=== PATIENT | male | born 1970 | race Hispanic/Latino ===

== ENCOUNTER 2021-01-30 19:16 | Emergency (ER) | payer SELFPAY ==
[2021-01-30 21:33] LABS: Absolute Lymphocytes (CBC) 1.1 K/uL (0.7-4.9); Basophils % 0.2 % (0-1.3); Hematocrit 46.3 % (39.6-49.0); Lymphocytes % 18.8 % (15.3-44.8); Protime INR 1.09; RBC Red Blood Cell Count 5.56 M/uL (4.33-5.43)
[2021-01-30 21:49] LABS: ALT/SGPT 52 U/L (12-78); AST/SGOT 33 U/L (15-37); Albumin 3.5 g/dL (3.4-5.0); Alkaline Phosphatase 75 U/L (45-117); BUN Blood Urea Nitrogen 13 mg/dL (7-18); Bicarbonate 25 mmol/L (21-32); Bilirubin Direct 0.1 mg/dL (0-0.2); Bilirubin Total 0.5 mg/dL (0.2-1.0); Glucose Level 183 mg/dL (74-106); Magnesium 2.4 mg/dL (1.8-2.4); NT PRO-BNP 9 pg/mL (<125); Potassium 4.1 mmol/L (3.5-5.1); Protein, Total 7.5 g/dL (6.4-8.2); Sodium Level 135 mmol/L (136-145); Troponin (Emerg Dept Use Only) < 0.02 ng/mL (0.0-0.045)
--- NOTE | 2021-01-30 21:52 | RAD REPORT ---
EXAM DESCRIPTION: Allyson Single View01/30/2021 9:29 pm CLINICAL HISTORY: Chest pain COMPARISON: none FINDINGS: Mild to moderate right and mild left pulmonary opacities. The heart is normal size IMPRESSION: Mild to moderate right and mild left pulmonary opacities probably pneumonia
[2021-01-30] MEDS ORDERED: ACETAMINOPHEN 500 MG TAB ONE (23:39)
[2021-01-31] MEDS ORDERED: dexAMETHasone 10 MG/ML VIAL ONE (00:14)
[2021-01-31] MEDS ORDERED: IBUPROFEN 400 MG TAB ONE (00:14)
[2021-01-31] MEDS ORDERED: HYDROCODONE/CHLORPHEN 5 ML/OSYR ONE (00:14)
[2021-01-31] MEDS ORDERED: NA CHLORIDE 0.9% 1,000 ML ONE (00:15)
[2021-01-31] MEDS ORDERED: CASIRIVIMAB/IMDEVIMAB 10 ML VIAL ONE (00:43)
[2021-01-31] MEDS ORDERED: NA CHLORIDE 0.9% 250 ML ONE (00:44)
[2021-01-31] MEDS ORDERED: NA CHLORIDE 0.9% 50 ML ONE (00:44)
[2021-01-31 01:48] LABS: C-Reactive Protein 83.3 mg/L (<3.00); Ferritin 788.9 ng/mL (26-388)
--- NOTE | 2021-01-31 03:21 | EDPHYS ---
Physician Documentation [facility] Name: Petr Ferraro Age: 51 yrs Sex: Male : 1970 Arrival Date: 01/30/2021 Time: 19:18 Bed 13 Private MD: ED Physician Brien Rouse HPI: 01/30 23:35 This 51 yrs old Male presents to ER via Ambulatory with complaints of Fever, cp Chest Pain > 30 y/o. 23:35 The patient reports fever, with an emergency department temperature of 102.7 degrees cp Fahrenheit. 23:35 The patient or guardian reports cough, that is constant, with no sputum, difficulty cp breathing. 23:35 Associated signs and symptoms: Pertinent positives: chest pain, with cough, Pertinent cp negatives: diarrhea, vomiting. Patient reports testing positive for COVID-19 on 01-26-2021 with symptoms started 01-25-2021. Historical: - Allergies: 20:56 No Known Allergies; kg - Home Meds: 20:56 metformin 500 mg Oral tab 1 tab 2 times per day [Active]; gabapentin 300 mg oral tab kg [Active]; - PMHx: 20:56 NIDDM; kg - PSHx: 20:56 None; kg - Immunization history:: Adult Immunizations not up to date, Client reports having NOT received the Covid vaccine. - Social history:: Smoking status: Patient reports the use of cigarette tobacco products, smokes one-half pack cigarettes per day. ROS: 23:40 Constitutional: Positive for body aches, fever, Negative for poor PO intake. cp 23:40 Eyes: Negative for injury, pain, redness, and discharge. cp 23:40 ENT: Negative for ear pain, sore throat, difficulty swallowing, difficulty handling secretions. 23:40 Cardiovascular: Positive for chest pain, with cough, Negative for edema, palpitations. 23:40 Respiratory: Positive for cough, with no reported sputum, shortness of breath, Negative for wheezing. 23:40 Abdomen/GI: Negative for abdominal pain, nausea, vomiting, and diarrhea, constipation. 23:40 Back: Negative for radiated pain. 23:40 Skin: Negative for rash. 23:40 Neuro: Negative for altered mental status, headache, syncope, weakness. 23:40 All other systems are negative. Exam: 21:15 ECG was reviewed by the Attending Physician. cp 23:45 Constitutional: The patient appears in no acute distress, alert, awake, cp non-diaphoretic, non-toxic, well developed, well nourished, uncomfortable. 23:45 Head/Face: Normocephalic, atraumatic. cp 23:45 Eyes: Periorbital structures: appear normal, Conjunctiva: normal, no exudate, no injection, Sclera: no appreciated abnormality, Lids and lashes: appear normal, bilaterally. 23:45 ENT: External ear(s): are unremarkable, Nose: is normal, Mouth: Lips: moist, Oral mucosa: moist, Posterior pharynx: Airway: no evidence of obstruction, patent. 23:45 Neck: ROM/movement: is normal, is supple, without pain, no range of motions limitations, no meningismus, no nuchal rigidity. 23:45 Chest/axilla: Inspection: normal, Palpation: is normal, no crepitus, no tenderness. 23:45 Cardiovascular: Rate: tachycardic, Rhythm: regular, Edema: is not appreciated, JVD: is not appreciated. 23:45 Respiratory: the patient does not display signs of respiratory distress, Respirations: normal, no use of accessory muscles, no retractions, labored breathing, is not present, Breath sounds: bronchial sounds, that are mild, are heard diffusely, decreased breath sounds, are not appreciated, stridor, is not appreciated, wheezing: is not appreciated. 23:45 Abdomen/GI: Inspection: abdomen appears normal, Palpation: abdomen is soft and non-tender, in all quadrants. 23:45 Skin: no rash present. 23:45 Neuro: Orientation: to person, place \T\ time. Mentation: is normal, Motor: moves all fours, strength is normal. Vital Signs: 20:54 BP 123 / 93; Pulse 123; Resp 20; Temp 99.2(O); Pulse Ox 97% on R/A; Weight 85.73 kg kg (R); Height 5 ft. 6 in. (167.64 cm) (R); Pain 9/10; 23:11 BP 131 / 94; Pulse 121; Resp 36; Temp 102.7(O); Pulse Ox 96% on R/A; mw2 01/31 00:32 BP 133 / 89; Pulse 107; Resp 20 S; Temp 100.6(O); Pulse Ox 96% on R/A; bb 01:26 BP 125 / 75; Pulse 94; Resp 22 S; Temp 99.1(O); Pulse Ox 97% on R/A; bb 02:00 BP 115 / 77; Pulse 87; Resp 24 S; Pulse Ox 95% on R/A; bb 02:30 BP 120 / 77; Pulse 84; Resp 22 S; Pulse Ox 96% on R/A; bb 03:00 BP 110 / 75; Pulse 79; Resp 22; Pulse Ox 95% on R/A; bb 03:30 BP 111 / 73; Pulse 76; Resp 21 S; Pulse Ox 95% on R/A; bb 04:03 BP 105 / 72; Pulse 88; Resp 22 S; Temp 97.8(O); Pulse Ox 96% on R/A; bb 01/30 20:54 Body Mass Index 30.51 (85.73 kg, 167.64 cm) kg MDM: 01/30 23:17 Patient medically screened. cp 01/31 03:19 Data reviewed: vital signs, nurses notes, lab test result(s), EKG, radiologic studies, cp CT scan, plain films. Test interpretation: by ED physician or midlevel provider: ECG, plain radiologic studies. Counseling: I had a detailed discussion with the patient and/or guardian regarding: the historical points, exam findings, and any diagnostic results supporting the discharge/admit diagnosis, lab results, radiology results, to return to the emergency department if symptoms worsen or persist or if there are any questions or concerns that arise at home. Response to treatment: the patient's symptoms have markedly improved after treatment, and as a result, I will discharge patient. 01/30 21:00 Order name: Basic Metabolic Panel kg 01/30 21:00 Order name: CBC with Diff; Complete Time: 23:17 kg 01/31 02:58 Interpretation: Normal except: RBC 5.56; PLT 145; BRIDGET% 74.0. cp 01/30 21:00 Order name: LFT's; Complete Time: 23:17 kg 01/30 21:00 Order name: Magnesium; Complete Time: 23:17 kg 01/30 21:00 Order name: NT PRO-BNP; Complete Time: 23:17 kg 01/30 21:00 Order name: PT-INR; Complete Time: 23:17 kg 01/30 21:00 Order name: Troponin (emerg Dept Use Only); Complete Time: 23:17 kg 01/30 21:00 Order name: XRAY Chest (1 view); Complete Time: 23:17 kg 01/30 21:00 Order name: Basic Metabolic Panel; Complete Time: 23:17 EDMS 01/30 23:51 Interpretation: Normal except: NA 135; GLUC 183; GFR 88. cp 01/30 23:30 Order name: CRP cp 01/30 23:30 Order name: CT Chest For PE Angio cp 01/30 23:30 Order name: Ferritin cp 01/30 23:31 Order name: C-Reactive Protein; Complete Time: 02:57 EDMS 01/31 02:58 Interpretation: Abnormal: C-REACTIVE PROT 83.30. cp 01/30 23:31 Order name: Ferritin; Complete Time: 02:57 EDMS 01/30 21:00 Order name: EKG; Complete Time: 21:01 kg 01/30 21:00 Order name: EKG - Nurse/Tech; Complete Time: 21:00 kg 01/30 21:00 Order name: IV Saline Lock; Complete Time: 01:02 kg 01/30 21:00 Order name: Labs collected and sent; Complete Time: 01:02 kg 01/30 21:00 Order name: O2 Per Protocol; Complete Time: 01:02 kg 01/30 21:00 Order name: O2 Sat Monitoring; Complete Time: 01:02 kg EC/04 21:15 Rate is 126 beats/min. Rhythm is regular. WA interval is normal. QRS interval is cp normal. QT interval is normal. T waves are Inverted in lead aVL. Interpreted by me. Reviewed by me. Administered Medications: 23:11 Drug: Tylenol 1000 mg Route: PO; bb 01/31 00:31 Follow up: Response: Temperature is decreased bb 00:31 Drug: Tussionex Pennkinetic ER (chlorpheniramine-hydrocodone) Suspension 5 ml Route: PO;bb 01:25 Follow up: Response: No adverse reaction bb 00: Drug: Ibuprofen 800 mg Route: PO; bb 01:25 Follow up: Response: Temperature is decreased bb 00:31 Drug: Decadron - Dexamethasone 6 mg Route: IVP; Site: left antecubital; bb 01:25 Follow up: Response: No adverse reaction bb 00:31 Drug: NS 0.9% 1000 ml Route: IV; Rate: 1 bolus; Site: left antecubital; bb 01:26 Follow up: IV Status: Completed infusion; IV Intake: 1000ml bb 01:25 Drug: REGEN-COV Dose Pack 120 mg/mL-120 mg/mL (EUA) 260 ml Route: IV; Rate: calculated bb rate; Site: left antecubital; 02:30 Follow up: IV Status: Completed infusion; IV Intake: 270ml bb 02:40 Follow up: Response: No adverse reaction; IV Status: Completed infusion; IV Intake: kg 250ml 04:00 Drug: Aspirin 81 mg Route: PO; bb 04:00 Follow up: Response: Medication administered at discharge. bb 04:01 Not Given (Physician Discretion): NS 0.9% 1000 ml IV at 1 bolus Per protocol; 1000 mL bb bolus Disposition: 05:46 Co-signature as Attending Physician, Brien Rouse MD. [email or web address] Disposition Summary: 01/31/21 03:20 Discharge Ordered Location: Home cp Problem: new cp Symptoms: have improved cp Condition: Stable cp Diagnosis - Other viral pneumonia cp - SARS-associated coronavirus as the cause of diseases classified elsewhere cp Followup: cp - With: Private Physician - When: 2 - 3 days - Reason: Recheck today's complaints Discharge Instructions: - Discharge Summary Sheet cp - Aspirin and Your Heart cp - COVID-19 cp - COVID-19: What Your Test Results Mean - [facility] cp - COVID-19 Frequently Asked Questions cp - Things to Know about the COVID-19 Pandemic - CDC cp - 10 Things You Can Do to Manage Your COVID-19 Symptoms at Home - CDC cp - COVID-19: Quarantine vs. Isolation - CDC cp Forms: - Medication Reconciliation Form cp - Thank You Letter cp - Antibiotic Education cp - Prescription Opioid Use cp Prescriptions: - albuterol sulfate 90 mcg/actuation Inhalation HFA aerosol inhaler - inhale 2 puff by INHALATION route every 6 hours; 1 Inhaler; Refills: 0, Product cp Selection Permitted - dexamethasone 2 mg Oral tablet - take 1 tablet by ORAL route 3 times per day for 5 days; 15 tablet; Refills: 0, cp Product Selection Permitted - Zithromax Z-Sandeep 250 mg Oral Tablet - take 1 tablet by ORAL route as directed for 5 days Day 1 - take two (2) tablets cp one time. Day 2, 3, 4 , 5 take one (1) tablet once daily.; 6 tablet; Refills: 0, Product Selection Permitted - Guaifenesin AC 10-100 mg/5 mL Oral Liquid - take 10 milliliters by ORAL route every 6-8 hours As needed; 180 milliliter; cp Refills: 0, Product Selection Permitted Signatures: Dispatcher [employer] EDMS Zee Medrano, RN RN bb Devante Genao PA PA cp Brien Rouse MD MD [email or web address] Dot Bradford RN RN kg Corrections: (The following items were deleted from the chart) 01/30 20:58 20:56 Home Meds: None; kg kg 01/31 02:58 01/30 23:51 Normal except: RBC 5.56; PLT 145. cp cp 01/31 04:00 03:08 [email or web address] ordered. EDMS EDMS
--- NOTE | 2021-01-31 03:21 | ER ---
Nurse's Notes [facility] Name: Petr Ferraro Age: 51 yrs Sex: Male : 1970 Arrival Date: 01/30/2021 Time: 19:18 Bed 13 Private MD: Diagnosis: Other viral pneumonia;SARS-associated coronavirus as the cause of diseases classified elsewhere Presentation: 01/30 20:54 Chief complaint: Patient states: Chest pain, fever x 3 days. COVID + 01/26. Coronavirus kg screen: Vaccine status: Patient reports being unvaccinated. Ebola Screen: Patient negative for fever greater than or equal to 101.5 degrees Fahrenheit, and additional compatible Ebola Virus Disease symptoms Patient denies exposure to infectious person. Patient denies travel to an Ebola-affected area in the 21 days before illness onset. Initial Sepsis Screen: Does the patient meet any 2 criteria? No. Patient's initial sepsis screen is negative. Does the patient have a suspected source of infection? No. Patient's initial sepsis screen is negative. Risk Assessment: Do you want to hurt yourself or someone else? Patient reports no desire to harm self or others. Onset of symptoms was January 27, 2021. 20:54 Method Of Arrival: Ambulatory kg 20:54 Acuity: DAMI 3 kg Triage Assessment: 20:56 General: Appears in no apparent distress. Behavior is calm, cooperative, appropriate kg for age, quiet. Pain: Complains of pain in xiphoid area and mid-sternal area. Cardiovascular: Reports chest pain. Historical: - Allergies: 20:56 No Known Allergies; kg - Home Meds: 20:56 metformin 500 mg Oral tab 1 tab 2 times per day [Active]; gabapentin 300 mg oral tab kg [Active]; - PMHx: 20:56 NIDDM; kg - PSHx: 20:56 None; kg - Immunization history:: Adult Immunizations not up to date, Client reports having NOT received the Covid vaccine. - Social history:: Smoking status: Patient reports the use of cigarette tobacco products, smokes one-half pack cigarettes per day. Screenin:40 Abuse screen: Denies threats or abuse. Nutritional screening: No deficits noted. bb Tuberculosis screening: No symptoms or risk factors identified. Fall Risk None identified. Assessment: 23:40 General: Appears uncomfortable, Behavior is calm, cooperative. Pain: Complains of pain bb in chest. Neuro: Level of Consciousness is awake, alert, obeys commands, Oriented to person, place, time, situation. Cardiovascular: Heart tones S1 S2 present Capillary refill < 3 seconds Patient's skin is warm and dry. Rhythm is sinus tachycardia. Respiratory: Respiratory effort is unlabored, Respiratory pattern is tachypnea Breath sounds are clear bilaterally. GI: No deficits noted. Derm: Skin is pink, warm \T\ dry. Musculoskeletal: Circulation, motion, and sensation intact. 23:44 Pain: Pain does not radiate. Pain began 2-3 days ago. bb 01/31 00:31 Reassessment: Patient is alert, oriented x 3, equal unlabored respirations, skin bb warm/dry/pink. pt signed consent for for Regen-Cov. 01:26 Reassessment: Patient is alert, oriented x 3, equal unlabored respirations, skin bb warm/dry/pink. pt resting quietly, Regen-Cov administered to left AC. 04:01 Reassessment: Patient is alert, oriented x 3, equal unlabored respirations, skin bb warm/dry/pink. pt verbalized understanding of and agrees to plan of care discharge instructions given pt ambulated with steady gait to exit Patient states feeling better. Vital Signs: 01/30 20:54 BP 123 / 93; Pulse 123; Resp 20; Temp 99.2(O); Pulse Ox 97% on R/A; Weight 85.73 kg kg (R); Height 5 ft. 6 in. (167.64 cm) (R); Pain 9/10; 23:11 BP 131 / 94; Pulse 121; Resp 36; Temp 102.7(O); Pulse Ox 96% on R/A; mw2 01/31 00:32 BP 133 / 89; Pulse 107; Resp 20 S; Temp 100.6(O); Pulse Ox 96% on R/A; bb 01:26 BP 125 / 75; Pulse 94; Resp 22 S; Temp 99.1(O); Pulse Ox 97% on R/A; bb 02:00 BP 115 / 77; Pulse 87; Resp 24 S; Pulse Ox 95% on R/A; bb 02:30 BP 120 / 77; Pulse 84; Resp 22 S; Pulse Ox 96% on R/A; bb 03:00 BP 110 / 75; Pulse 79; Resp 22; Pulse Ox 95% on R/A; bb 03:30 BP 111 / 73; Pulse 76; Resp 21 S; Pulse Ox 95% on R/A; bb 04:03 BP 105 / 72; Pulse 88; Resp 22 S; Temp 97.8(O); Pulse Ox 96% on R/A; bb 01/30 20:54 Body Mass Index 30.51 (85.73 kg, 167.64 cm) kg ED Course: 01/30 19:18 Patient arrived in ED. bp1 20:56 Triage completed. kg 21:12 Inserted saline lock: 20 gauge in left antecubital area, using aseptic technique. kg 21:28 XRAY Chest (1 view) In Process Unspecified. EDMS 23:08 Devante eGnao PA is PHCP. cp 23:08 Brien Rouse MD is Attending Physician. cp 23:40 Zee Medrano RN is Primary Nurse. bb 23:40 Patient maintains SpO2 saturation greater than 95% on room air. bb 23:40 Patient has correct armband on for positive identification. supervisor hot dip tinning on. Pulse bb ox on. NIBP on. 23:43 Arm band placed on. bb 01/31 00:15 CT Chest For PE Angio In Process Unspecified. EDMS 04:03 No provider procedures requiring assistance completed. IV discontinued, intact, bb bleeding controlled, No redness/swelling at site. Pressure dressing applied. Administered Medications: 01/30 23:11 Drug: Tylenol 1000 mg Route: PO; bb 01/31 00:31 Follow up: Response: Temperature is decreased bb 00:31 Drug: Tussionex Pennkinetic ER (chlorpheniramine-hydrocodone) Suspension 5 ml Route: PO;bb 01:25 Follow up: Response: No adverse reaction bb 00:31 Drug: Ibuprofen 800 mg Route: PO; bb 01:25 Follow up: Response: Temperature is decreased bb 00:31 Drug: Decadron - Dexamethasone 6 mg Route: IVP; Site: left antecubital; bb 01:25 Follow up: Response: No adverse reaction bb 00:31 Drug: NS 0.9% 1000 ml Route: IV; Rate: 1 bolus; Site: left antecubital; bb 01:26 Follow up: IV Status: Completed infusion; IV Intake: 1000ml bb 01:25 Drug: REGEN-COV Dose Pack 120 mg/mL-120 mg/mL (EUA) 260 ml Route: IV; Rate: calculated bb rate; Site: left antecubital; 02:30 Follow up: IV Status: Completed infusion; IV Intake: 270ml bb 02:40 Follow up: Response: No adverse reaction; IV Status: Completed infusion; IV Intake: kg 250ml 04:00 Drug: Aspirin 81 mg Route: PO; bb 04:00 Follow up: Response: Medication administered at discharge. bb 04:01 Not Given (Physician Discretion): NS 0.9% 1000 ml IV at 1 bolus Per protocol; 1000 mL bb bolus Intake: 01:26 IV: 1000ml; Total: 1000ml. bb 02:30 IV: 270ml; Total: 1270ml. bb 02:40 IV: 250ml; Total: 1520ml. kg Outcome: 03:20 Discharge ordered by MD. cp 04:03 Discharged to home ambulatory. bb 04:03 Condition: stable 04:03 Discharge instructions given to patient, Instructed on discharge instructions, follow up and referral plans. medication usage, Demonstrated understanding of instructions, follow-up care, medications, Prescriptions given X 4. 04:07 Patient left the ED. bb Signatures: Dispatcher [employer] EDMS Zee Medrano RN RN bb Devante Genao PA PA cp [place], MyKena mw2 Kelly Hawk Kristen, RN RN kg Corrections: (The following items were deleted from the chart) 01/30 20:58 20:56 Home Meds: None; kg kg
[2021-01-31] MEDS ORDERED: ASPIRIN 81 MG CHEWABLE TABLET ONE (04:19)
[2021-01-31 04:27] VITALS: BP 105/72; TEMP 97.8; O2SAT 96
--- NOTE | 2021-02-01 11:52 | RAD REPORT ---
EXAM DESCRIPTION: CT - Chest For Pe Angio - 01/31/2021 5:35 am CLINICAL HISTORY: 51 years, Male, CHEST PAIN COMPARISON: None TECHNIQUE: Multiple transaxial tomograms of the chest were obtained from the lung apices through the lung bases utilizing 2 mm slice thickness at 2 mm interval reconstruction after the administration o f large bolus of IV contrast for complete opacification of the pulmonary arteries. Subsequent maximum intensity projection images were generated in the coronal and sagittal plane for r eview. This exam was performed according to our departmental dose-optimization protocol, which includes auto mated exposure control, adjustment of the mA and/or kV according to patient size and/or use of iterat marysol reconstruction technique. FINDINGS: The lungs parenchyma demonstrate the presence of small bilateral upper and lower lobe elda pheral groundglass opacities with minimal interlobular septal thickening-crazy paving, suspicious for COVID-19 pneumonia. There are no significant consolidations/or masses are identified. The trachea mainstem bronchus demonstrate to be normal. There is no significant pericardial or pleura l effusions. The thoracic aorta demonstrate to be unremarkable. The heart is in the upper normal size with left ve ntricular hypertrophy. No evidence for right ventricular strain. There are no coronary artery calcifi cations. There is no significant mediastinal and/or hilar lymphadenopathy. The axillary regions demonstrate to be clear. Pulmonary arteries demonstrate to be normal, no intraluminal defect are seen that would suggest pulmo nary embolus. The bone windows demonstrate no significant skeletal lesions. The visualized portions of the abdomen demonstrate decreased attenuation of the liver suggesting fatt y infiltration. IMPRESSION: No evidence for pulmonary embolism. Commonly reported imaging features of COVID-19 pneumonia are present. Other processes such as influen za pneumonia and organizing pneumonia, as can be seen with drug toxicity and connective tissue diseas e, can cause a similar imaging pattern. Borderline cardiomegaly with left ventricular hypertrophy. Fatty infiltration of the liver. Electronically signed by: Lance Low MD 01/31/2021 12:31 AM CDT Due to temporary technical issues with the PACS/Fluency reporting system, reports are being signed by the in house radiologists without review as a courtesy to insure prompt reporting. The interpreting radiologist is fully responsible for the content of the report.
--- NOTE | 2021-02-01 16:58 | EKG ---
Test Date: 2021-01-30 Test Time: 20:56:20 Unix Engineer: GIANLUCA MEASUREMENT RESULTS: Intervals: Rate: 126 DC: 144 QRSD: 80 QT: 298 QTc: 431 [place]: P: 32 DC: 144 QRS: 15 T: 71 INTERPRETIVE STATEMENTS: Sinus tachycardia Otherwise normal ECG No previous ECG available for comparison Electronically Signed On 02-01-21 16:56:09 CDT by Edward Fu
== END 2021-01-31 04:07 | disposition home or self-care (01) ==
LOC: ER 19:16
DX: U07.1 COVID-19 (principal); J12.89 Other viral pneumonia; E11.9 Type 2 diabetes mellitus without complications; F17.210 Nicotine dependence, cigarettes, uncomplicated
CPT/HCPCS: 36415; 71045; 71275; 80048; 80076; 82728; 83735; 83880; 84484; 85025; 85610; 86140; 93005; 96361; 96365; 96375; 99285; J7050; Q9967

== ENCOUNTER 2021-11-14 10:42 | Emergency (ER) | payer OTHER ==
--- OUTSIDE RECORDS SUMMARY | 2021-11-14 10:45 | XMS REPORT | Continuity of Care Document ---
:1970 Author Organization [facility] t Address [address] [place] [address] [address] [place] [address] Care Team Providers Name Role Phone Unavailable Unavailable Unavailable Problems This patient has no known problems. Allergies, Adverse Reactions, Alerts This patient has no known allergies or adverse reactions. Medications This patient has no known medications. Procedures This patient has no known procedures. Results Test Description Test Time Test Comments Results Result Comments Source HEMOGLOBIN A1c 2021-10-16 04:10:21 Test Item Value Reference Range Interpretation Comme nts HEMOGLOBIN A1c (test code = 6.5 % 4.2-5.6 H [employer] 05187) GUIDELINES FOR HGB A1C: PREDIABETES/INC REASED RISK . . . . . . . 5.7-6.4% DIAGNOSIS OF DIABETES . . . . . . . . . >=6.5% WITH CONFIRMATION OR APPROPRIATE SYMPTOMS NOTE: ASSAY MA Y BE AFFECTED BY HEMOGLOBINOPATH IES (SICKLE CELL ANEMIA, S-C DIS EASE, OTHERS) OR ARTIFICIALLY LO WERED BY DECREASED RED CELL SURVIV AL (HEMOLYTIC ANEMIAS, BLOOD LOSS, ETC.). CONSIDER ALTERNATE TESTI NG OR LABORATORY CONSULTATION. LIPID [id number] 03:45:47 Test Item Value Reference Range Interpretation Comments CHOLESTEROL (test 230 MG/DL <200 H code = 2210) TRIGLYCERIDES (test 212 MG/DL <150 H code = 2232) HDL CHOLESTEROL (test 40 MG/DL >39 code = 2220) CALC LDL CHOL (test 152 MG/DL <100 H NOTE: C ALCULATED LDL code = 2237) IS BASED ON NATALYA-JO METHOD WHICHINCLUDES ADJUSTABLE TRIGLYCERIDE:VL DL CHOLESTEROL RAT IO.THIS FACTOR VARIES B Y MEASURED TRIGLY CERIDE AND NON-HDLCHOL ESTEROL CONCENTRATIONS WITH INCREASED CALCU LATED LDL SEENIN HIGH ER TRIGLYCERIDE OR LOWER NON-HDL SPECIME NS. FOR MOREINFORMATION , SEE CLIENT ANNOUNCE MENT AT [email or web address] RISK RATIO LDL/HDL 3.80 RATIO <3.55 H UN LESS (test code = 2238) OTHERWISE INDICATED, ALL TESTING PER FORMED ATCLINICAL PATH [facility]. [address] [place] [address] LABORATORY DIRE CTOR: OLEG WINSTON M.D. CLIA NUMBER [id number] CAP ACCREDITATION N O. [id number]
[2021-11-14] MEDS ORDERED: ONDANSETRON 4 MG/2 ML VIAL ONE (11:07)
[2021-11-14] MEDS ORDERED: MORPHINE 4 MG/ML SYR ONE (11:07)
[2021-11-14 11:13] LABS: Absolute Lymphocytes (CBC) 2.2 K/uL (0.7-4.9); Hematocrit 45.9 % (39.6-49.0); Lymphocytes % 30.1 % (15.3-44.8); MPV 7.2 fL (7.6-11.3); RBC Red Blood Cell Count 5.56 M/uL (4.33-5.43)
[2021-11-14] MEDS ORDERED: DIPHENHYDRAMINE 25 MG TAB/CAP ONE (11:18)
[2021-11-14] MEDS ORDERED: DIPHENHYDRAMINE 50 MG/ML VIAL ONE (11:18)
[2021-11-14] MEDS ORDERED: METHYLPREDNISOLONE 125 MG INJ ONE (11:18)
[2021-11-14 11:28] LABS: Bilirubin Total 0.6 mg/dL (0.2-1.0); Potassium 4.2 mmol/L (3.5-5.1); Protein, Total 7.2 g/dL (6.4-8.2)
--- NOTE | 2021-11-14 12:44 | RAD REPORT ---
EXAM DESCRIPTION: US - Abdomen Exam Limited - 11/14/2021 12:35 pm CLINICAL HISTORY: ABD PAIN COMPARISON: No comparisons FINDINGS: The gallbladder demonstrates no gallstones. No pericholecystic fluid or gallbladder wall t hickening. The common bile duct is normal measuring 4 mm. The liver demonstrates no findings of intrahepatic biliary dilatation. IMPRESSION: Unremarkable examination.
[2021-11-14] MEDS ORDERED: FENTANYL CITR 100 MCG/2 ML ONE (13:00)
--- NOTE | 2021-11-14 13:40 | RAD REPORT ---
EXAM DESCRIPTION: CTAbdomen Pelvis W Contrast - 11/14/2021 1:25 pm CLINICAL HISTORY: RUQ abdominal pain, US nondiagnostic COMPARISON: Abdomen Exam Limited dated 11/14/2021; Chest For Pe Angio dated 01/31/2021 TECHNIQUE: CT of the abdomen and pelvis was performed. All CT scans are performed using dose optimization technique as appropriate and may include automated exposure control or mA/KV adjustment according to patient size. FINDINGS: Lower chest: No acute abnormality. Small hiatal hernia. Patulous esophagus containing jarad sted contents. . Liver: No acute abnormality or suspicious lesions. Biliary: No biliary ductal dilatation. Stomach: No significant focal abnormality. Duodenum: No significant focal abnormality. Pancreas: No significant abnormality. Spleen: No significant abnormality. Adrenal: No suspicious lesions. Kidney/ureter: No hydronephrosis. No renal calculi. Retroperitoneum: No retroperitoneal adenopathy. Vascular: No aneurysm. Bowel: Formed stool within the small bowel suggesting slow transit.. Normal appendix. Peritoneum: Fat containing inguinal hernias. Bladder: Grossly unremarkable. Reproductive: Prostatomegaly Bones: No acute fracture. Other: n/a IMPRESSION: No acute intra-abdominal or pelvic finding. Mildly patulous esophagus containing some fl uid is nonspecific but an esophageal motility disorder is a consideration. Normal appendix.
--- NOTE | 2021-11-14 14:06 | EDPHYS ---
Physician Documentation [facility] Name: Petr Barboza Age: 51 yrs Sex: Male : 1970 Arrival Date: 11/14/2021 Time: 10:45 Bed 7 Private MD: ED Physician Romi Fermin HPI: 11/14 10:59 This 51 yrs old Male presents to ER via Ambulatory with complaints of en Abdominal Pain, Back Pain. 10:59 51 yo M with h/o gastritis presents to ED with 8d of RUQ pain radiating to right flank. en Described as colicky in nature, intermittent and worse with food. +Nausea without V/D. No melena, hematochezia, CP, SOB, PRYOR, GERD, bloating,. Historical: - Allergies: 10:52 No Known Allergies; ll1 - Home Meds: 11:05 gabapentin 300 mg Oral tab [Active]; metformin 500 mg Oral tab 1 tab 2 times per day miner [Active]; - PMHx: 10:46 NIDDM; ll1 10:52 Hypercholesterolemia; ll1 - PSHx: 10:52 None; ll1 - Immunization history:: Client reports receiving the 2nd dose of the Covid vaccine. - Social history:: Smoking status: Patient denies any tobacco usage or history of. ROS: 10:59 Constitutional: Negative for fever, chills, and weight loss. en 10:59 Constitutional: Negative for body aches, chills, fatigue, fever. 10:59 Cardiovascular: Negative for chest pain, edema, orthopnea, palpitations, paroxysmal nocturnal dyspnea. 10:59 Respiratory: Negative for cough, dyspnea on exertion, shortness of breath. 10:59 Abdomen/GI: Positive for abdominal pain, nausea, Negative for vomiting, diarrhea. 10:59 Back: Positive for flank pain, on the right. 10:59 All other systems are negative. Exam: 10:59 Constitutional: This is a well developed, well nourished patient who is awake, alert, en and in no acute distress. 10:59 Constitutional: The patient appears in no acute distress, alert, awake. 10:59 Eyes: Pupils: equal, round, and reactive to light and accomodation, Extraocular movements: intact throughout, Conjunctiva: normal, no exudate, no injection, Sclera: icterus, is not appreciated. 10:59 ENT: Mouth: Lips: moist, Oral mucosa: pink and intact, moist, Posterior pharynx: is normal, airway is patent. 10:59 Neck: ROM/movement: is normal. 10:59 Cardiovascular: Rate: normal, Rhythm: regular, Pulses: no pulse deficits are appreciated, Heart sounds: normal, no murmur, no rub, no gallop. 10:59 Respiratory: the patient does not display signs of respiratory distress, Respirations: normal, Breath sounds: are clear throughout, no rales, rhonchi, no stridor, no wheezing. 10:59 Abdomen/GI: S/ND/NABS x 4 RUQ TTP with +Howells sign. No organomegaly. Mild epigastric TTP with guarding. No masses. 10:59 Back: CVA tenderness, that is mild, is noted on the right. 10:59 Musculoskeletal/extremity: ROM: intact in all extremities, full active range of motion. 10:59 Skin: Exam negative for rash, no jaundice. 10:59 Neuro: Orientation: appropriate for stated age, no acute changes, to person, place \T\ time. Mentation: appropriate for stated age, no acute changes. 10:59 Psych: Behavior/mood is pleasant, cooperative, Affect is calm. Vital Signs: 10:52 BP 146 / 98; Pulse 77; Resp 18; Temp 97.3; Pulse Ox 99% ; Weight 87.09 kg; Height 5 ft. ll1 6 in. (167.64 cm); Pain 7/10; 11:15 BP 141 / 85; Pulse 73; Resp 16 S; Pulse Ox 98% on R/A; jg9 12:30 BP 142 / 88; Pulse 62; Resp 17 S; Pulse Ox 98% on R/A; jg9 12:45 BP 128 / 88; Pulse 64; Resp 14; Pulse Ox 99% ; Pain 7/10; jg9 10:52 Body Mass Index 30.99 (87.09 kg, 167.64 cm) ll1 MDM: 10:59 Differential diagnosis: acute coronary syndrome, coronary artery disease, en cholecystitis, Cholelithiasis, gastritis, gastroesophageal reflux disease, GI Bleed, Hepatitis, myocardia ischemia or infarction, pancreatitis, Peptic Ulcer Disease, Perf. Duodenal Ulcer. 10:59 Data reviewed: vital signs, nurses notes, lab test result(s), EKG, radiologic studies, en and as a result, I will will check labs, US . 12:23 Patient medically screened. en 12:50 ED course: Pt had a reaction to morphine- veins irritated and erythematous. No en respiratory sxs. Gave solumedrol and po benadryl with resolution. Still have significant pain. Will give Fentanyl. Pending US report. 12:52 ED course: RUQ US negative, but pt with significant pain. Will get CT. en 13:06 Data reviewed: EKG, EKG NSR \T\71 bpm, inverted t-waves III,aVF, V6 without depression. en 14:04 ED course: Pt pain resolved. Reviewed imaging and labs. discussed gastritis vs PUD and en need to f/u with PCP and GI. Since sxs resolved at present, will defer GI slider. Will d/c home on protonix, bentyl, and zofran. ER return warnings reviewed. 11/14 10:59 Order name: CBC with Diff; Complete Time: 12:05 en 11/14 10:59 Order name: CMP; Complete Time: 12:05 en 11/14 10:59 Order name: Lipase; Complete Time: 12:05 en 11/14 10:59 Order name: Amylase, Serum; Complete Time: 12:05 en 11/14 10:59 Order name: US Abdomen Limited; Complete Time: 12:51 en 11/14 11:04 Order name: Troponin High Sensitivity; Complete Time: 12:05 en 11/14 10:59 Order name: Saline Lock; Complete Time: 11:04 en 11/14 13:18 Order name: Abdomen ; Complete Time: 13:57 EDMS 11/14 11:04 Order name: EKG - Nurse/Tech; Complete Time: 11:21 en Administered Medications: 11:03 Drug: morphine 4 mg Route: IVP; Infused Over: 4 mins; Site: right antecubital; miner 11:04 Follow up: Response: No adverse reaction miner 11:03 Drug: Zofran (Ondansetron) 4 mg Route: IVP; Site: right antecubital; miner 11:04 Follow up: Response: No adverse reaction miner 11:16 Drug: SOLU-Medrol (methylPREDNISolone sodium succinate) 125 mg Route: IM; Site: Other; miner 11:16 Follow up: Response: No adverse reaction miner 11:16 Drug: Benadryl (diphenhydrAMINE) 25 mg Route: PO; miner 11:16 Follow up: Response: No adverse reaction miner 12:55 Drug: fentaNYL (PF) 50 mcg Route: IVP; Site: right antecubital; miner 12:56 Follow up: Response: No adverse reaction miner Disposition Summary: 11/14/21 14:05 Discharge Ordered Location: Home en Problem: new en Symptoms: have improved en Condition: Stable en Diagnosis - Acute gastritis en Followup: en - With: Ralph Garcia MD - When: 1 - 2 days - Reason: Followup: en - With: Julius Nieto MD - When: 1 - 2 days - Reason: Discharge Instructions: - Discharge Summary Sheet en - Gastritis, Adult, [id number] en Forms: - Medication Reconciliation Form en - Thank You Letter en - Antibiotic Education en - Prescription Opioid Use en Prescriptions: - dicyclomine 20 mg Oral tablet - take 2 tablet by ORAL route 4 times per day; 30 tablet; Refills: 0, Product en Selection Permitted - Protonix 40 mg Oral Tablet - take 1 tablet by ORAL route once daily; 30 tablet; Refills: 0, Product en Selection Permitted - Zofran 4 mg Oral Tablet - take 1 tablet by ORAL route every 12 hours As needed; 20 tablet; Refills: 0, en Product Selection Permitted Signatures: Dispatcher [employer] Nils Merlos RN RN ll1 Paige Haskins RN RN Elvira Stone PA PA en Corrections: (The following items were deleted from the chart) 13:18 12:52 Abdomen W/ Con+CT.RAD.BRZ ordered. EDMS EDMS
--- NOTE | 2021-11-14 14:06 | ER ---
Nurse's Notes [facility] Name: Petr Barboza Age: 51 yrs Sex: Male : 1970 Arrival Date: 11/14/2021 Time: 10:45 Bed 7 Private MD: Diagnosis: Acute gastritis Presentation: 11/14 10:52 Chief complaint: Patient states: RUQ abd pain that radiates around to back for 3 days. ll1 Denies N/V/D. No fever. States the pain gets worse after eating sometimes. Coronavirus screen: Vaccine status: Patient reports receiving the 2nd dose of the covid vaccine. Client denies travel out of the [place] in the last 14 days. At this time, the client does not indicate any symptoms associated with coronavirus-19. Ebola Screen: Patient denies travel to an Ebola-affected area in the 21 days before illness onset. Initial Sepsis Screen: Does the patient meet any 2 criteria? No. Patient's initial sepsis screen is negative. Does the patient have a suspected source of infection? Yes: Acute abdominal pain. Risk Assessment: Do you want to hurt yourself or someone else? Patient reports no desire to harm self or others. Onset of symptoms was November 12, 2021. 10:52 Method Of Arrival: Ambulatory ll1 10:52 Acuity: DAMI 3 ll1 Triage Assessment: 10:53 General: Appears uncomfortable, Behavior is calm, cooperative, appropriate for age. ll1 Pain: Complains of pain in abdomen Quality of pain is described as aching. GI: Abdomen is flat, Reports upper abdominal pain. Historical: - Allergies: 10:52 No Known Allergies; ll1 - Home Meds: 11:05 gabapentin 300 mg Oral tab [Active]; metformin 500 mg Oral tab 1 tab 2 times per day miner [Active]; - PMHx: 10:46 NIDDM; ll1 10:52 Hypercholesterolemia; ll1 - PSHx: 10:52 None; ll1 - Immunization history:: Client reports receiving the 2nd dose of the Covid vaccine. - Social history:: Smoking status: Patient denies any tobacco usage or history of. Screenin:05 Abuse screen: Denies threats or abuse. Denies injuries from another. Nutritional miner screening: No deficits noted. Tuberculosis screening: No symptoms or risk factors identified. Fall Risk None identified. Assessment: 11:04 GI: Bowel sounds present X 4 quads. Abd is soft and non tender X 4 quads. Reports miner cramping, nausea, Pain is 7 out of 10 on a pain scale. 12:00 Reassessment: Patient and/or family updated on plan of care and expected duration. Pain jg9 level reassessed. Patient is alert, oriented x 3, equal unlabored respirations, skin warm/dry/pink. Patient states symptoms have improved. 12:55 Reassessment: Patient administered pain medication, patient request to use the bathroom.jg9 Vital Signs: 10:52 BP 146 / 98; Pulse 77; Resp 18; Temp 97.3; Pulse Ox 99% ; Weight 87.09 kg; Height 5 ft. ll1 6 in. (167.64 cm); Pain 7/10; 11:15 BP 141 / 85; Pulse 73; Resp 16 S; Pulse Ox 98% on R/A; jg9 12:30 BP 142 / 88; Pulse 62; Resp 17 S; Pulse Ox 98% on R/A; jg9 12:45 BP 128 / 88; Pulse 64; Resp 14; Pulse Ox 99% ; Pain 7/10; jg9 10:52 Body Mass Index 30.99 (87.09 kg, 167.64 cm) ll1 ED Course: 10:45 Patient arrived in ED. mr 10:46 Arm band placed on Patient placed in an exam room, on a stretcher. ll1 10:47 Elvira Ramos PA is PHCP. en 10:47 Romi Fermin MD is Attending Physician. en 10:50 Yue Huber, EARNESTINE is Primary Nurse. jg9 10:53 Triage completed. ll1 11:05 Patient has correct armband on for positive identification. Bed in low position. miner 11:05 No provider procedures requiring assistance completed. Inserted saline lock: 20 gauge miner in right antecubital area, using aseptic technique. 12:37 US Abdomen Limited In Process Unspecified. EDMS 13:26 Abdomen In Process Unspecified. EDMS 14:05 Ralph Garcia MD is Referral Physician. en 14:05 Julius Nieto MD is Referral Physician. en 14:13 IV discontinued, intact, Pressure dressing applied. miner Administered Medications: 11:03 Drug: morphine 4 mg Route: IVP; Infused Over: 4 mins; Site: right antecubital; miner 11:04 Follow up: Response: No adverse reaction miner 11:03 Drug: Zofran (Ondansetron) 4 mg Route: IVP; Site: right antecubital; miner 11:04 Follow up: Response: No adverse reaction miner 11:16 Drug: SOLU-Medrol (methylPREDNISolone sodium succinate) 125 mg Route: IM; Site: Other; miner 11:16 Follow up: Response: No adverse reaction miner 11:16 Drug: Benadryl (diphenhydrAMINE) 25 mg Route: PO; miner 11:16 Follow up: Response: No adverse reaction miner 12:55 Drug: fentaNYL (PF) 50 mcg Route: IVP; Site: right antecubital; miner 12:56 Follow up: Response: No adverse reaction miner Medication: 11:05 VIS not applicable for this client. miner Outcome: 14:05 Discharge ordered by MD. hayes 14:13 Discharged to home ambulatory. miner 14:13 Condition: good 14:13 Discharge instructions given to patient, Prescriptions given X 3. 14:13 Patient left the ED. miner Signatures: Dispatcher [employer] EDNC AngelaLavern lassiter mr Nils Franklin RN RN ll1 Yue Huber RN RN jg9 Paige Haskins RN RN ha [place], Elizabeth, PA PA en
[2021-11-14 14:23] VITALS: TEMP 97.3
[2021-11-14 14:28] VITALS: BP 128/88; O2SAT 99
--- NOTE | 2021-11-15 11:51 | EKG ---
Test Date: 2021-11-14 Test Time: 11:16:36 Third Officer: JENNIFER MEASUREMENT RESULTS: Intervals: Rate: 71 PA: 168 QRSD: 92 QT: 370 QTc: 402 [place]: P: 47 PA: 168 QRS: 36 T: 1 INTERPRETIVE STATEMENTS: Normal sinus rhythm Cannot rule out Inferior infarct, age undetermined Abnormal ECG No previous ECG available for comparison Electronically Signed On 11-15-21 11:50:12 CDT by Edward Fu
== END 2021-11-14 14:13 | disposition home or self-care (01) ==
LOC: ER 10:42
DX: K29.00 Acute gastritis without bleeding (principal); E11.9 Type 2 diabetes mellitus without complications; E78.00 Pure hypercholesterolemia, unspecified
CPT/HCPCS: 93005; 85025; 36415; 82150; 84484; 83690; 80053; 74177; 76705; 96375; 96372; 96374; 99284; Q9967; J3010; J2930; J2405; J1200